=== PATIENT | male | born 1970 | race Caucasian/White ===

== ENCOUNTER 2018-10-06 14:58 | Emergency (ER) | payer OTHER ==
[~2018-10-06] VITALS: Ht 182.9 cm; Wt 70.0 kg
[2018-10-06 15:03] VITALS: BP 118/94; PULSE 96; RESP 20; Ht 182.9 cm; Wt 70.0 kg
[2018-10-06] MEDS ORDERED: ALPR0.5T PO (15:16)
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
[2018-10-06] MEDS ORDERED: OLANZAPINE 5 MG TAB PO ONE (15:30)
[2018-10-06] MEDS ORDERED: LORAZEPAM 0.5 MG TAB PO ONE (15:30)
== END 2018-10-06 16:26 ==
LOC: E/R 14:58
DX: F41.9 Anxiety disorder, unspecified (principal); R40.2142 Coma scale, eyes open, spontaneous, at arrival to emergency department; R40.2362 Coma scale, best motor response, obeys commands, at arrival to emergency department; R40.2252 Coma scale, best verbal response, oriented, at arrival to emergency department; R07.9 Chest pain, unspecified
CPT/HCPCS: 93005